=== PATIENT | female | born 1940 | race Caucasian/White ===

== ENCOUNTER → 2016-11-09 | Outpatient (CLI) | payer OTHER ==
[~2016-11-09] MED LIST: BENICAR40 MG PO; CRESTOR40 MG PO; LO-DOSE ASPIRIN81 M1 PO; NORMODYNE,TRAN300 MG PO; NORVASC10 MG PO; ROCALTROL0.25 MCG PO; TEKTURNA150 MG PO; VITAMIN D31000 UNI2 PO
[2016-11-09 10:09] LABS: MCHC 33.4 G/DL (30.0-36.0); MCV 92.6 FL (83-99); MEAN PLAT.VOLUME 10.2 uM^3 (9.5-12.4); PLATELET COUNT 217 K/uL (156-360); RBC DIS.WIDTH-CV 13.6 % (11.8-14.6); RBC DIS.WIDTH-SD 45.7 % (39-53); RED BLOOD COUNT 3.78 M/uL (3.80-5.20); WHITE BLOOD COUNT 8.3 K/uL (4.1-10.2)
[2016-11-09 10:19] LABS: INTER. NORMALIZED RATIO 1.1; PROTHROMBIN TIME 10.7 (9.2-11.2); PTT 28.7 (25-32)
== END | disposition home or self-care (01) ==
LOC: OPR 09:26 → EDSTATUS 10:00
PROVIDERS: Internal Medicine Pulmonary Disease
PROC: 0BBJ3ZX Excision of Left Lower Lung Lobe, Percutaneous Approach, Diagnostic (ICD-10-PCS; principal; 2016-11-09)
DX: C34.32 Malignant neoplasm of lower lobe, left bronchus or lung (principal); I10 Essential (primary) hypertension; F17.200 Nicotine dependence, unspecified, uncomplicated; E78.5 Hyperlipidemia, unspecified
CPT/HCPCS: 71010; 77012; 85027; 85610; 85730; 88305; 88341 TC; 88342 TC; J3010

== ENCOUNTER 2017-01-11 11:45 | Day surgery (SDC) | payer OTHER ==
[2017-01-01 10:13] LABS: BASE EXCESS -2.9 mEq/L (-3 to +3); BICARBONATE 21.9 mEq/L (22-26); CARBOXY HGB 3.8 % (0-5); COMMENTS - BLOOD GASES A+C+; DEVICE RA; FI02 21 %; METHEMOGLOBIN 1.4 % (0-1.5); O2 FLOW 0 L/MIN; PCO2 37 mm Hg (35-45); PO2 81 mm Hg (80-100); SITE LR; TOTAL RESP RATE 18 resp/min; pH 7.38 (7.35-7.45)
[~2017-01-11] VITALS: Ht 165.1 cm; Wt 57.0 kg
[~2017-01-11 11:45] MED LIST changes: +CRESTOR10 MG PO; +NORMODYNE,TRAN200 MG PO
[2017-01-11 12:16] VITALS: BP 168/58
[2017-01-11] MEDS ORDERED: COLACE100 MG PO (14:34)
[2017-01-11] MEDS ORDERED: NORCO 5/3251 TABLET PO (14:34)
[2017-01-11 16:10] VITALS: BP 176/64
[2017-01-11 17:12] VITALS: BP 165/50
== END 2017-01-11 17:12 | disposition home or self-care (01) ==
LOC: SDC 11:45
PROVIDERS: Thoracic Surgery (Cardiothoracic Vascular Surgery)
PROC: 07B74ZX Excision of Thorax Lymphatic, Percutaneous Endoscopic Approach, Diagnostic (ICD-10-PCS; principal; 2017-01-11)
DX: C34.32 Malignant neoplasm of lower lobe, left bronchus or lung (principal); I12.9 Hypertensive chronic kidney disease with stage 1 through stage 4 chronic kidney disease, or unspecified chronic kidney disease; N18.9 Chronic kidney disease, unspecified; B39.2 Pulmonary histoplasmosis capsulati, unspecified; Z82.49 Family history of ischemic heart disease and other diseases of the circulatory system; Z80.51 Family history of malignant neoplasm of kidney; Z80.0 Family history of malignant neoplasm of digestive organs; F17.210 Nicotine dependence, cigarettes, uncomplicated; Z79.82 Long term (current) use of aspirin
CPT/HCPCS: 36600; 80053; 82803; 85025; 85610; 86900; 86901; 88305; 88312; J0690; J1170; J3010

== ENCOUNTER 2017-01-18 09:42 | Inpatient (IN) | payer OTHER ==
[~2017-01-18] VITALS: Ht 165.1 cm; Wt 56.2 kg
[~2017-01-18 09:42] MED LIST changes: +COLACE100 MG PO; +NORCO 5/3251 TABLET PO
[2017-01-31] MEDS ORDERED: TRAMADOL HCL50 MG PO (14:22)
[2017-04-13] MEDS ORDERED: ANORO ELLIPTA1 EACH IH (09:18)
[2017-04-13] MEDS ORDERED: LABETALOL HCL200 MG PO (09:19)
[2017-04-13] MEDS ORDERED: FLAGYL500 MG PO (19:58)
[2017-04-13] MEDS ORDERED: CIPRO500 MG PO (20:02)
[2017-04-19] VITALS (10 sets, daily range): BP systolic 129–179; BP diastolic 53–102
[2017-04-19 06:24] LABS: BASOPHIL COUNT 0.1 K/uL (0-0.1); EOSINOPHIL (%) 1.7 % (0-5); EOSINOPHIL COUNT 0.2 K/uL (0-0.3); HEMATOCRIT 33.8 % (36.0-46.0); IMMATURE GRANULOCYTE (%) 0.3 % (0.0-0.7); INSTRUMENT ABS NEUTROPHIL CT 7.3 K/uL; LYMPHOCYTE COUNT 1.4 K/uL (1.0-2.8); MCH 30.3 PG (29.0-34.0); MCHC 32.8 G/DL (30.0-36.0); MCV 92.3 FL (83-99); MEAN PLAT.VOLUME 9.5 uM^3 (9.5-12.4); MONOCYTE (%) 6.6 % (3-12); MONOCYTE COUNT 0.6 K/uL (0-0.8); NEUTROPHIL (%) 76.5 % (45-76); NEUTROPHIL COUNT 7.3 K/uL (1.8-6.4); PLATELET COUNT 219 K/uL (156-360); RBC DIS.WIDTH-CV 13.5 % (11.8-14.6); RBC DIS.WIDTH-SD 46.5 % (39-53); RED BLOOD COUNT 3.66 M/uL (3.80-5.20); WHITE BLOOD COUNT 9.6 K/uL (4.1-10.2)
[2017-04-19 06:37] LABS: INTER. NORMALIZED RATIO 1.1; PROTHROMBIN TIME 12.3 SEC (10.2-12.9)
[2017-04-19 06:42] LABS: CHLORIDE 107 mEq/L (99-109); SODIUM 138 mEq/L (136-147)
[2017-04-19 06:44] LABS: GLUCOSE 96 mg/dL (70-99)
[2017-04-19 06:45] LABS: ANION GAP 8 MEQ/L (2-14)
[2017-04-19 06:46] LABS: TOTAL BILIRUBIN 0.4 mg/dL (0.0-1.0)
[2017-04-19 06:47] LABS: ALKALINE PHOSPHATASE 120 IU/L (3-129)
[2017-04-19 06:48] LABS: GFR ESTIMATE (CALCULATED) 36 mL/min/
[2017-04-19 06:49] LABS: POTASSIUM 4.5 mEq/L (3.7-5.4); UREA NITROGEN (BUN) 18 mg/dL (9-23)
[2017-04-19 16:56] LABS: METH RESISTANT S AUREUS PCR NEGATIVE (NEGATIVE)
[2017-04-19 17:04] LABS: PROBE CHECK PASS; SPECIMEN PROCESSING CONTROL PASS
[2017-04-20] VITALS: BP 176/58
[2017-04-20 07:20] LABS: MCH 30.5 PG (29.0-34.0); MCHC 32.7 G/DL (30.0-36.0); MCV 93.2 FL (83-99); MEAN PLAT.VOLUME 10.1 uM^3 (9.5-12.4); PLATELET COUNT 175 K/uL (156-360); RBC DIS.WIDTH-CV 13.5 % (11.8-14.6); RBC DIS.WIDTH-SD 46.5 % (39-53)
[2017-04-20 07:23] LABS: ANION GAP 7 MEQ/L (2-14); CHLORIDE 106 MEQ/L (99-109); GFR ESTIMATE (CALCULATED) 31 mL/min/; POTASSIUM 4.8 MEQ/L (3.7-5.4); SAMPLE HEMOLYSIS CHECK 0; SAMPLE ICTERIC CHECK 0; SAMPLE LIPEMIA CHECK 0; SODIUM 135 MEQ/L (136-147); UREA NITROGEN (BUN) 23 mg/dL (9-23)
[2017-04-20 07:32] LABS: RED BLOOD COUNT 2.79 M/uL (3.80-5.20)
[2017-04-20 07:33] LABS: GLUCOSE 162 mg/dL (70-99)
[2017-04-20 08:00] VITALS: BP 140/52
[2017-04-20 12:00] VITALS: BP 145/115
[2017-04-20 12:15] LABS: POINT-OF-CARE METER ID UU14174217
[2017-04-20 16:00] VITALS: BP 177/62
[2017-04-20 17:59] LABS: POINT-OF-CARE METER ID UU14162636
[2017-04-20 20:00] VITALS: BP 168/50
[2017-04-21] VITALS (11 sets, daily range): BP systolic 0–179; BP diastolic 0–75
[2017-04-21 05:45] LABS: HEMATOCRIT 25.4 % (36.0-46.0); MCH 30.7 PG (29.0-34.0); MCHC 32.7 G/DL (30.0-36.0); MCV 94.1 FL (83-99); MEAN PLAT.VOLUME 10.6 uM^3 (9.5-12.4); PLATELET COUNT 175 K/uL (156-360); RBC DIS.WIDTH-SD 48.5 % (39-53)
[2017-04-21 06:13] LABS: ANION GAP 8 MEQ/L (2-14); CHLORIDE 103 MEQ/L (99-109); GFR ESTIMATE (CALCULATED) 31 mL/min/; GLUCOSE 121 mg/dL (70-99); POTASSIUM 4.4 MEQ/L (3.7-5.4); SAMPLE HEMOLYSIS CHECK 0; SAMPLE ICTERIC CHECK 0; SAMPLE LIPEMIA CHECK 0; SODIUM 133 MEQ/L (136-147); UREA NITROGEN (BUN) 27 mg/dL (9-23)
[2017-04-22] VITALS: BP 157/54
[2017-04-22 04:00] VITALS: BP 175/54
[2017-04-22 05:44] LABS: HEMATOCRIT 22.1 % (36.0-46.0); MCH 30.5 PG (29.0-34.0); MCHC 32.1 G/DL (30.0-36.0); MCV 94.8 FL (83-99); MEAN PLAT.VOLUME 10.6 uM^3 (9.5-12.4); PLATELET COUNT 157 K/uL (156-360); RBC DIS.WIDTH-CV 14.1 % (11.8-14.6); RBC DIS.WIDTH-SD 49.2 % (39-53); RED BLOOD COUNT 2.33 M/uL (3.80-5.20); WHITE BLOOD COUNT 12.8 K/uL (4.1-10.2)
[2017-04-22 06:00] LABS: ANION GAP 4 MEQ/L (2-14); CHLORIDE 108 MEQ/L (99-109); GFR ESTIMATE (CALCULATED) 36 mL/min/; GLUCOSE 119 mg/dL (70-99); MAGNESIUM 1.9 mg/dl (1.3-2.7); POTASSIUM 4.3 MEQ/L (3.7-5.4); SAMPLE HEMOLYSIS CHECK 0; SAMPLE ICTERIC CHECK 0; SAMPLE LIPEMIA CHECK 0; SODIUM 136 MEQ/L (136-147); UREA NITROGEN (BUN) 25 mg/dL (9-23)
[2017-04-22 08:00] VITALS: BP 158/78
[2017-04-22 12:00] VITALS: BP 158/78
[2017-04-22 16:00] VITALS: BP 153/66
[2017-04-22 20:00] VITALS: BP 172/57
[2017-04-23] VITALS (14 sets, daily range): BP systolic 158–205; BP diastolic 48–93
[2017-04-23 05:29] LABS: HEMATOCRIT 20.8 % (36.0-46.0); MCH 30.2 PG (29.0-34.0); MCHC 32.2 G/DL (30.0-36.0); MCV 93.7 FL (83-99); MEAN PLAT.VOLUME 10.7 uM^3 (9.5-12.4); PLATELET COUNT 180 K/uL (156-360); RBC DIS.WIDTH-SD 48.1 % (39-53); RED BLOOD COUNT 2.22 M/uL (3.80-5.20); WHITE BLOOD COUNT 13.8 K/uL (4.1-10.2)
[2017-04-23 14:27] LABS: HEMATOCRIT 25.1 % (36.0-46.0); MCV 91.6 FL (83-99)
[2017-04-24] VITALS (12 sets, daily range): BP systolic 130–203; BP diastolic 53–98
[2017-04-25] VITALS (8 sets, daily range): BP systolic 125–181; BP diastolic 43–95
[2017-04-26] VITALS (7 sets, daily range): BP systolic 147–185; BP diastolic 49–60
[2017-04-26 05:23] LABS: HEMATOCRIT 25.1 % (36.0-46.0); MCHC 33.9 G/DL (30.0-36.0); MCV 91.6 FL (83-99); RBC DIS.WIDTH-CV 14.3 % (11.8-14.6); RBC DIS.WIDTH-SD 47.8 % (39-53); WHITE BLOOD COUNT 13.8 K/uL (4.1-10.2)
[2017-04-26 05:24] LABS: PLATELET COUNT 242 K/uL (156-360); RED BLOOD COUNT 2.74 M/uL (3.80-5.20)
[2017-04-26 05:39] LABS: CHLORIDE 105 mEq/L (99-109); POTASSIUM 4.2 mEq/L (3.7-5.4); SODIUM 135 mEq/L (136-147)
[2017-04-26 05:41] LABS: GLUCOSE 117 mg/dL (70-99)
[2017-04-26 05:42] LABS: ANION GAP 9 MEQ/L (2-14)
[2017-04-26 05:45] LABS: GFR ESTIMATE (CALCULATED) 42 mL/min/
[2017-04-26 05:46] LABS: UREA NITROGEN (BUN) 20 mg/dL (9-23)
[2017-04-26] MEDS ORDERED: HYDROCODON-ACE1 EAC7 PO (15:12)
[2017-04-26] MEDS ORDERED: DOCUSATE SODIU100 MG PO (15:12)
[2017-04-26] MEDS ORDERED: Ocean Nasal 0.65% BOTH NARES (15:12)
== END 2017-04-26 17:06 | disposition home or self-care (01) | DRG 165 ==
LOC: 2SOUTH 09:42 → ENRESERV 04-18 22:02 → CANRESERV 04-18 22:02 → 2SOUTH 04-19 05:08 → CANRESERV 04-19 07:52 → ENRESERV 04-19 07:52 → 2SOUTH 04-19 12:09 → ENRESERV 04-19 13:47 → 2SOUTH 04-19 14:29 → 4WEST 04-19 15:04
PROVIDERS: Surgery; Thoracic Surgery (Cardiothoracic Vascular Surgery)
PROC: 07B70ZX Excision of Thorax Lymphatic, Open Approach, Diagnostic (ICD-10-PCS; principal; 2017-04-19)
PROC: 0BTJ0ZZ Resection of Left Lower Lung Lobe, Open Approach (ICD-10-PCS; principal; 2017-04-19)
PROC: 30233N1 Transfusion of Nonautologous Red Blood Cells into Peripheral Vein, Percutaneous Approach (ICD-10-PCS; 2017-04-23)
DX: C34.32 Malignant neoplasm of lower lobe, left bronchus or lung (principal); D63.8 Anemia in other chronic diseases classified elsewhere; D64.9 Anemia, unspecified; I12.9 Hypertensive chronic kidney disease with stage 1 through stage 4 chronic kidney disease, or unspecified chronic kidney disease; Z80.51 Family history of malignant neoplasm of kidney; Z80.0 Family history of malignant neoplasm of digestive organs; F17.210 Nicotine dependence, cigarettes, uncomplicated; D72.829 Elevated white blood cell count, unspecified; Z90.49 Acquired absence of other specified parts of digestive tract; S52.532D Colles' fracture of left radius, subsequent encounter for closed fracture with routine healing; X58.XXXD Exposure to other specified factors, subsequent encounter; M19.90 Unspecified osteoarthritis, unspecified site; N18.9 Chronic kidney disease, unspecified
CPT/HCPCS: 71010; 71020; 80048; 80053; 82948; 83735; 84100; 85014; 85018; 85025; 85027; 85610; 86900; 86901; 86920; 87641; 88300; 88305; 88309; 94002; 94010; 94640; 94640 76; 94760; 94799; 99202; J0330; J0690; J1100; J1200; J1644; J1940; J2250; J2405; J3010; J7040; J7050; P9016; S0020

== ENCOUNTER 2017-01-31 12:51 | Emergency (ER) | payer OTHER ==
[~2017-01-31] VITALS: Ht 165.1 cm; Wt 57.0 kg
[2017-01-31 13:14] VITALS: BP 155/40
[2017-01-31] MEDS ORDERED: TRAMADOL HCL50 MG PO (14:22)
== END 2017-01-31 15:24 | disposition home or self-care (01) ==
LOC: EME 12:51
PROC: 2W3DX1Z Immobilization of Left Lower Arm using Splint (ICD-10-PCS; principal; 2017-01-31)
DX: S52.532A Colles' fracture of left radius, initial encounter for closed fracture (principal); W01.0XXA Fall on same level from slipping, tripping and stumbling without subsequent striking against object, initial encounter; I10 Essential (primary) hypertension; Z85.118 Personal history of other malignant neoplasm of bronchus and lung; F17.200 Nicotine dependence, unspecified, uncomplicated
CPT/HCPCS: 73090; 73110; 73130; 99281; 99284

== ENCOUNTER 2017-04-13 01:05 | Observation (INO) | payer OTHER ==
[~2017-04-13] VITALS: Ht 165.1 cm; Wt 55.1 kg
[~2017-04-13 01:05] MED LIST changes: +TRAMADOL HCL50 MG PO
[2017-04-13 01:48] LABS: EOSINOPHIL COUNT 0.2 K/uL (0-0.3); HEMATOCRIT 32.8 % (36.0-46.0); IMMATURE GRANULOCYTE (%) 0.5 % (0.0-0.7); IMMATURE GRANULOCYTE COUNT 0.1 K/uL; INSTRUMENT ABS NEUTROPHIL CT 7.4 K/uL; LYMPHOCYTE COUNT 1.7 K/uL (1.0-2.8); MCH 30.4 PG (29.0-34.0); MCHC 32.9 G/DL (30.0-36.0); MCV 92.4 FL (83-99); MEAN PLAT.VOLUME 9.6 uM^3 (9.5-12.4); MONOCYTE (%) 6.3 % (3-12); MONOCYTE COUNT 0.6 K/uL (0-0.8); NEUTROPHIL (%) 73.8 % (45-76); NEUTROPHIL COUNT 7.4 K/uL (1.8-6.4); PLATELET COUNT 196 K/uL (156-360); RBC DIS.WIDTH-CV 13.5 % (11.8-14.6); RBC DIS.WIDTH-SD 46.5 % (39-53); RED BLOOD COUNT 3.55 M/uL (3.80-5.20)
[2017-04-13 02:02] LABS: CHLORIDE 105 mEq/L (99-109); SODIUM 138 mEq/L (136-147)
[2017-04-13 02:05] LABS: ANION GAP 9 MEQ/L (2-14)
[2017-04-13 02:06] LABS: TOTAL BILIRUBIN 0.4 mg/dL (0.0-1.0)
[2017-04-13 02:08] LABS: ALKALINE PHOSPHATASE 102 IU/L (3-129); GFR ESTIMATE (CALCULATED) 36 mL/min/
[2017-04-13 02:09] LABS: UREA NITROGEN (BUN) 22 mg/dL (9-23)
[2017-04-13 02:11] LABS: LIPASE 55 U/L (1.0-51.0); TROP-I INTERPRETATION NEGATIVE; TROPONIN-I < 0.01 ng/mL (0.0-0.30)
[2017-04-13 02:16] LABS: GLUCOSE 111 mg/dL (70-99); POTASSIUM 3.6 mEq/L (3.7-5.4)
[2017-04-13 03:41] LABS: ADD MIUA? YES; BILIRUBIN NEGATIVE; BLOOD NEGATIVE; COLOR YELLOW ((YELLOW)); GLUCOSE (STRIP) NEGATIVE; KETONES NEGATIVE; LEUKOCYTES MODERATE; NITRITE NEGATIVE; PROTEIN (STRIP) 100; SPECIFIC GRAVITY 1.011 (1.000-1.030); UROBILINOGEN 0.2 MG/DL (0.2-1.0)
[2017-04-13 03:44] LABS: BACTERIA RARE /HPF; EPITHELIAL CELLS 2+ /HPF; MUCUS TRACE /LPF; RED BLOOD CELLS 0-5 /HPF (0-5); UCUL ADDED? NO; WHITE BLOOD CELLS 15-20 /HPF (0-5)
[2017-04-13 08:20] VITALS: BP 169/72
[2017-04-13] MEDS ORDERED: ANORO ELLIPTA1 EACH IH (09:18)
[2017-04-13] MEDS ORDERED: LABETALOL HCL200 MG PO (09:19)
[2017-04-13 10:05] LABS: TROP-I INTERPRETATION NEGATIVE; TROPONIN-I < 0.01 ng/mL (0.0-0.30)
[2017-04-13 15:39] VITALS: BP 163/72
[2017-04-13 19:31] VITALS: BP 168/76
[2017-04-13] MEDS ORDERED: FLAGYL500 MG PO (19:58)
[2017-04-13] MEDS ORDERED: CIPRO500 MG PO (20:02)
== END 2017-04-13 20:44 | disposition home or self-care (01) ==
LOC: EME 01:05 → EDOF 05:56 → ENRESERV 06:03 → 3EAST 07:50
PROVIDERS: Emergency Medicine; Hospitalist
DX: R10.84 Generalized abdominal pain (principal); K52.9 Noninfective gastroenteritis and colitis, unspecified; N39.0 Urinary tract infection, site not specified; I10 Essential (primary) hypertension; C34.32 Malignant neoplasm of lower lobe, left bronchus or lung; R79.89 Other specified abnormal findings of blood chemistry; R06.02 Shortness of breath; Z82.49 Family history of ischemic heart disease and other diseases of the circulatory system; F17.200 Nicotine dependence, unspecified, uncomplicated; Z79.82 Long term (current) use of aspirin; F40.240 Claustrophobia; Z88.1 Allergy status to other antibiotic agents
CPT/HCPCS: 71020; 74176; 76705; 80053; 81003; 83690; 84484; 85025; 87086; 93005; 99281; 99285; G0378; J1644; J2405; J3010; J7030

== ENCOUNTER → 2018-02-28 | Outpatient (CLI) | payer OTHER ==
[~2018-02-28] MED LIST changes: +ADULT ASPIRIN81 MG PO; +ANORO ELLIPTA1 EACH IH; +CATAPRES0.1 MG PO; +CIPRO500 MG PO; +DOCUSATE SODIU100 MG PO; +FLAGYL500 MG PO; +HYDROCODON-ACE1 EAC7 PO; +IRON325 M1 PO; +LABETALOL HCL200 MG PO; +MULTIPLE VITAM1 EAC1 PO; +Ocean Nasal 0.65% BOTH NARES
== END | disposition home or self-care (01) ==
LOC: OPR 07:32 → EDSTATUS 08:00
PROC: 0TB03ZX Excision of Right Kidney, Percutaneous Approach, Diagnostic (ICD-10-PCS; principal; 2018-02-28)
DX: R80.9 Proteinuria, unspecified (principal); N18.3 Chronic kidney disease, stage 3 (moderate); E78.00 Pure hypercholesterolemia, unspecified; Z85.118 Personal history of other malignant neoplasm of bronchus and lung
CPT/HCPCS: 77012; 88305; 88313 90; 88346 90; 88348 90; J3010